=== PATIENT | female | born 1980 | race Caucasian/White ===

== ENCOUNTER 2020-08-24 08:18 | Emergency (ER) | payer SELFPAY ==
[~2020-08-24] VITALS: Ht 154.9 cm; Wt 73.0 kg
[2020-08-24 09:10] VITALS: BP 120/78
== END 2020-08-24 09:11 | disposition home or self-care (01) ==
LOC: ER 08:52
DX: S01.91XD Laceration without foreign body of unspecified part of head, subsequent encounter (principal); Z48.00 Encounter for change or removal of nonsurgical wound dressing; X58.XXXD Exposure to other specified factors, subsequent encounter
CPT/HCPCS: 99281